=== PATIENT | female | born 1975 | race Two or more races ===

== ENCOUNTER 2024-06-07 21:18 | Emergency (ER) | payer OTHER ==
[~2024-06-07] VITALS: Ht 165.1 cm; Wt 148.0 kg
[2024-06-07 21:19] VITALS: O2SAT 98
[2024-06-07 22:01] LABS: BASOPHILS % 0.5 % (0.0-2.0); EOSINOPHILS % 0.5 % (0.0-5.0); HEMATOCRIT. 45.5 % (36.0-48.0); HEMOGLOBIN. 15.4 g/dL (12.0-16.0); LYMPHOCYTES % 10.9 % (20.0-50.0); MEAN CORPUSCULAR HEMOGLOBIN 28.6 pg (28.0-32.0); MEAN CORPUSCULAR HGB CONC 33.9 g/dL (31.0-37.0); MEAN CORPUSCULAR VOLUME 84.5 fL (81.0-99.0); MONOCYTES % 8.3 % (2.0-8.0); NEUTROPHILS % 79.8 % (40.0-76.0); PLATELET 259 x1000/uL (130-400); RED BLOOD CELL COUNT 5.39 mill/uL (4.2-5.4); RED CELL DISTRIBUTION WIDTH 14.3 % (11.6-14.6); WHITE BLOOD COUNT 8.7 x1000/uL (4.5-11.0)
[2024-06-07 22:07] LABS: CARBON DIOXIDE 26 mEq/L (21-32); CHLORIDE 107 mEq/L (98-107); POTASSIUM 3.3 mEq/L (3.5-5.1); SODIUM 141 mEq/L (136-145)
[2024-06-07 22:08] LABS: CALCIUM 9.9 mg/dL (8.7-10.4)
[2024-06-07 22:11] LABS: INR 1.1; PARTIAL THROMBOPLASTIN TIME 28.5 sec (23.4-31.0); PROTHROMBIN TIME 11.8 sec (9.6-11.0)
[2024-06-07 22:13] LABS: CREATININE 0.9 mg/dL (0.6-1.0); GLUCOSE 127 mg/dL (70-105); TROPONIN I HIGH SENSITIVITY 4 ng/L (3.0-34); UREA NITROGEN BLOOD 14 mg/dL (9-23)
[2024-06-07 22:14] LABS: ALANINE AMINOTRANSFERASE 23 IU/L (10-49)
[2024-06-07 22:15] LABS: ALBUMIN 4.3 g/dL (3.2-4.8); ASPARTATE AMINOTRANSFERASE 30 IU/L (<34); BILIRUBIN DIRECT 0.3 mg/dL (<=3.0); BILIRUBIN TOTAL 0.8 mg/dL (0.1-1.0); PROTEIN TOTAL 8.7 g/dL (6.0-8.3)
[2024-06-07 22:16] LABS: ETHANOL BLOOD < 10 mg/dL (<10)
[2024-06-07] MEDS: ACETAMINOPHEN 325MG TABLET PO NR (23:16)
[2024-06-07] MEDS: CEFTRIAXONE 1GM/50ML 50 ML IV NR (23:16)
[2024-06-08] MEDS: DEXAMETHASONE 10 MG/ML VIAL IV ONE
[2024-06-08] MEDS: ONDANSETRON HCL 4MG/2ML INJ IV ONE
[2024-06-08] MEDS: LEVETIRACETAM 500MG PREMIX 100 ML IV ONE
[2024-06-08] MEDS: AZITHROMYCIN 500MG/250ML 250 ML IV SCH (00:46)
[2024-06-08] MEDS: IOHEXOL-350 100 ML BOTTLE ONE (03:57)
[2024-06-08 05:21] VITALS: BP 156/80; PULSE 80; RESP 18; TEMP 36.78072; O2SAT 98
== END 2024-06-08 05:26 | disposition short-term general hospital (02) ==
LOC: ER 21:18 → EDBEDREQTM 23:17 → EDBEDREQ 23:17 → ER 06-08 05:26
DX: R55 Syncope and collapse (principal); J18.9 Pneumonia, unspecified organism; R60.0 Localized edema
CPT/HCPCS: 80076; 80048; 80320; 83880; 85025; 85379; 85610; 85730; 87040; 84484; 36415; 71045; 70450; 93005; 96365; 99285; 71275; 93970; 96367; 96366; 96375; J1953; J0456; J0696; J1100; J2405; Q9967; G0480